=== PATIENT | female | born 1990 | race African-American/Black ===

== ENCOUNTER 2021-03-10 18:08 | Emergency (ER) | payer BC, OTHER ==
[~2021-03-10] VITALS: Ht 157.5 cm; Wt 52.6 kg
--- NOTE | 2021-03-10 18:30 | NUR ---
PT CAME IN WITH FATHER. REQUESTING SHE COULD NOT WALK AND REQUESTED FOR BLANKET AND WHEELCHAIR. NAD VSS RA DIAPHORETIC AND C/O NAUSEA NO EMESIS
[2021-03-10] MEDS ORDERED: COREG (18:41)
[2021-03-10] MEDS ORDERED: CLON0.5T4 PO (18:41)
[2021-03-10] MEDS ORDERED: ASPI81TA31 PO (18:41)
[2021-03-10] MEDS ORDERED: LEVOTHYROXINE (18:41)
[2021-03-10] MEDS ORDERED: PROZAC (18:41)
[2021-03-10] MEDS ORDERED: ONDANSETRON 4 MG/2 ML VIAL IV ONE (18:45)
[2021-03-10] MEDS ORDERED: IV NORMAL SALINE 1000 ML BAG IV ONE (18:45)
[2021-03-10] MEDS ORDERED: VANCOMYCIN IV 1,000 MG in IV DEXTROSE 5% 250 ML IV ONE (19:00)
[2021-03-10] MEDS ORDERED: CEFEPIME HCL 1 G in IV DEXTROSE 5% 50 ML IV ONE (19:00)
--- NOTE | 2021-03-10 19:00 | NUR ---
REPORT GIVEN TO TAWNY BRADSHAW WHO IS STARTING IV LINE ON PT. PT IS DIAPHORETIC, NAD VSS RA PENDING MEDS
[2021-03-10 19:21] LABS: BASOPHILS # (AUTO) 0.1 K/uL (0.0-8.0); BASOPHILS % (AUTO) 0.4 % (0.0-2.0); HEMATOCRIT 30.7 % (31.2-41.9); HEMOGLOBIN 9.2 g/dL (10.9-14.3); LYMPHOCYTES # (AUTO) 3.5 K/uL (20.0-40.0); LYMPHOCYTES % (AUTO) 22.6 % (20.5-51.5); MEAN CORPUSCULAR HEMOGLOBIN 21.4 uug (24.7-32.8); MEAN CORPUSCULAR HGB CONC 30 g/dL (32.3-35.6); MEAN CORPUSCULAR VOLUME 71.6 fL (75.5-95.3); MONOCYTES # (AUTO) 1.7 K/uL (2.0-10.0); MONOCYTES % (AUTO) 10.8 % (0.0-11.0); NEUTROPHILS # (AUTO) 10.3 K/uL (1.8-8.9); NEUTROPHILS % (AUTO) 66.2 % (38.5-71.5); PLATELET COUNT (AUTO) 180 K/uL (179-408); RED BLOOD CELL COUNT(AUTO) 4.29 MIL/uL (3.63-4.92); WHITE BLOOD COUNT (AUTO) 15.5 K/uL (3.8-11.8)
[2021-03-10] MEDS ORDERED: ONDANSETRON 4 MG/2 ML VIAL ONE (19:21)
[2021-03-10] MEDS ORDERED: MAGNESIUM SULFATE/D5W 100 ML IV STA (19:34)
[2021-03-10 19:41] LABS: ALANINE AMINOTRANSFERASE 1646 U/L (14-59); ALKALINE PHOSPHATASE 98 U/L (50-136); BILIRUBIN,DIRECT 0.5 mg/dL (0.0-0.2); BILIRUBIN,TOTAL 2.2 mg/dL (0.2-1.0); CARBON DIOXIDE 15 mmol/L (21-32); CHLORIDE 94 mmol/L (98-107); CREATININE 1.9 mg/dL (0.6-1.3); GLUCOSE 98 mg/dL (74-106); TOTAL PROTEIN, SERUM 9.8 g/dL (6.4-8.2); UREA NITROGEN, BLOOD 35 mg/dL (7-18)
[2021-03-10 19:43] LABS: POTASSIUM 6.2 mmol/L (3.5-5.1)
[2021-03-10 19:54] LABS: ASPARTATE AMINOTRANSFERASE 2976 U/L (15-37)
[2021-03-10] MEDS ORDERED: CEFEPIME HCL 1 G VIAL ONE (20:01)
[2021-03-10] MEDS ORDERED: MAGNESIUM SULFATE/D5W 200 ML ONE (20:01)
[2021-03-10] MEDS ORDERED: VANCOMYCIN IV 200 ML ONE (20:01)
[2021-03-10] MEDS ORDERED: DOBUTamine IV 250 ML IV STA (20:03)
[2021-03-10] MEDS ORDERED: NOREPINEPHRINE BITARTRATE 8 MG in IV NORMAL SALINE 242 ML IV STA (20:03)
--- NOTE | 2021-03-10 20:05 | NUR ---
spoke with Nilsa Robertson (pt's manager print) via telephone.
--- NOTE | 2021-03-10 20:10 | NUR ---
Spoke with Dilcia at [facility] transfer center ([phone]) regarding transfer. Requested information faxed to [phone].
[2021-03-10] MEDS ORDERED: CALCIUM GLUCONATE IV 2 GM in IV DEXTROSE 5% 250 ML IV ONE (20:30)
[2021-03-10] MEDS ORDERED: DEXTROSE 50% 50 ML DISP.SYRIN IV ONE (20:30)
[2021-03-10] MEDS ORDERED: INSULIN REGULAR, HUMAN 300 UNIT/3 ML VIAL IV ONE (20:30)
[2021-03-10] MEDS ORDERED: SODIUM BICARBONATE 8.4% 50 MEQ/50 ML DISP.SYRIN IV ONE ×2 (20:30→22:30)
[2021-03-10] MEDS ORDERED: NOREPINEPHRINE BITARTRATE 4 MG/4 ML VIAL IV ONE ×2 (20:32→20:35)
[2021-03-10] MEDS ORDERED: DOBUTamine IV 250 ML IV ONE (20:33)
[2021-03-10 20:35] LABS: *BILIRUBIN,URIN 1+ (NEGATIVE); *BLOOD, URINE 2+ (NEGATIVE); *CLARITY,URINE SLIGHTLY CLOUDY (CLEAR); *COLOR,URINE DARK YELLOW (YELLOW); *KETONES,URINE NEGATIVE (NEGATIVE); *UROBILINOGEN,URINE 0.2 E.U./dl (NORMAL); LEUKOCYTE ESTERASE ,URINE NEGATIVE (NEGATIVE); NITRITE, URINE NEGATIVE (NEGATIVE); UGLUCOSE NEGATIVE (NEGATIVE)
[2021-03-10 20:38] LABS: *URINE HCG, QUAL NEGATIVE (NEGATIVE)
[2021-03-10] MEDS ORDERED: CALCIUM GLUCONATE 1 GM/10 ML VIAL IV ONE ×2 (20:43→22:42)
[2021-03-10 20:50] LABS: BACTERIA,URINE MODERATE /HPF (NONE SEEN); RBC,URINE 20-50 /HPF (0-3); URINE AMORPHOUS URATE MODERATE /HPF
[2021-03-10 20:53] LABS: COARSE GRANULAR CASTS,URINE FEW /LPF; SQUAMOUS EPITHELIAL CELL,UR MODERATE /HPF (NONE SEEN)
--- NOTE | 2021-03-10 21:02 | NUR ---
Doctor completing central line at this time.
--- NOTE | 2021-03-10 21:20 | NUR ---
Per Dilcia patient has been accepted to their facility, accepting. Pt will be going to [facility], 7 CCU, Rm [id number]. SBAR report given to Dilcia via telephone, she stated no further report in needed. Dilcia stated she will arrange transport and call back with an ETA.
[2021-03-10] MEDS ORDERED: SODIUM BICARBONATE 8.4% 50 MEQ/50 ML VIAL IV ONE (21:35)
[2021-03-10] MEDS ORDERED: DEXTROSE 50% 50 ML DISP.SYRIN ONE (21:36)
[2021-03-10] MEDS ORDERED: INSULIN REGULAR, HUMAN 300 UNIT/3 ML VIAL ONE (21:36)
[2021-03-10] MEDS ORDERED: FUROSEMIDE 40 MG/4 ML VIAL IV ONE (21:45)
[2021-03-10 22:00] VITALS: BP 83/50
[2021-03-10] MEDS ORDERED: FUROSEMIDE 40 MG/4 ML VIAL ONE (22:04)
[2021-03-10] MEDS ORDERED: FUROSEMIDE 20 MG/2 ML VIAL IVP ONE (22:30)
[2021-03-10] MEDS ORDERED: CALCIUM CHLORIDE 1 GM/10 ML DISP.SYRIN IVP ONE (22:30)
[2021-03-10 23:01] LABS: CREATININE 1.8 mg/dL (0.6-1.3); POTASSIUM 4.3 mmol/L (3.5-5.1)
--- NOTE | 2021-03-10 23:10 | NUR ---
Report given to AUGUSTINE Orozco of [facility]. Also report given to Kaden Fuchs of critical care transport of [facility])
[2021-03-10 23:12] LABS: BILIRUBIN,TOTAL 1.8 mg/dL (0.2-1.0)
--- NOTE | 2021-03-13 09:30 | NUR ---
LATE ENTRY: The following medications were administered by AUGUSTINE Lujan on 03/11/21. NS 1000ml IV bolus via saline lock RAC: start time-1944, end time-2044. Zofran 8mg IVP given via saline lock RAC. Vancomycin 1gm IVPB via saline lock RAC: start time-1999, end time-2099. Dextrose 50% 50ml IV given at 2104 via central line Rt IJ. Magnesium 1gm IVPB via central line Rt IJ: start time-2104, end time-2134. Levophed drip via central line Rt IJ: start time-2119, still infusing upon transfer to [facility] at 2310.
[2021-03-13] MEDS ORDERED: COVID-19 VACC,MRNA(MODERNA)/PF 100 MCG/0.5 ML VIAL IM ONE (16:11)
== END 2021-03-10 23:10 | disposition short-term general hospital (02) ==
LOC: ER 18:13
DX: R11.2 Nausea with vomiting, unspecified (principal); I50.9 Heart failure, unspecified; N17.9 Acute kidney failure, unspecified; E87.2 Acidosis; B17.9 Acute viral hepatitis, unspecified; R94.31 Abnormal electrocardiogram [ECG] [EKG]; E87.5 Hyperkalemia; G40.909 Epilepsy, unspecified, not intractable, without status epilepticus; Z95.2 Presence of prosthetic heart valve; E89.0 Postprocedural hypothyroidism; D82.1 Di George's syndrome
CPT/HCPCS: 36415; 36556; 71045 ×2; 76604; 76937; 80048; 80053; 80076; 81001; 83605 ×2; 83735; 84145; 84484; 84702; 84703; 85025; 85730; 87040 ×2; 87086; 87426; 93005; 93308; 96365 ×2; 96366; 96368; 96375; 99291; 99292; J0610 ×2; J0692; J1815; J1940; J2405; J3370; J3475; J3490 ×2; 70030-TC; J7030; J7050